=== PATIENT | male | born 1995 | race Caucasian/White ===

== ENCOUNTER 2024-07-16 13:57 | Emergency (ER) | payer OTHER ==
[~2024-07-16] VITALS: Ht 182.9 cm; Wt 70.3 kg
[2024-07-16 14:26] VITALS: TEMP 98
[2024-07-16] MEDS ORDERED: KETOROLAC TROMETHAMINE INJ 30 MG/ML VIAL ONE (15:04)
[2024-07-16] MEDS ORDERED: HYDROCODONE/APAP 5/325MG TABLET ONE (15:04)
[2024-07-16] MEDS ORDERED: oxyCODONE/APAP (5/325 MG) 1 UDTAB TABLET ONE ×2 (15:06→16:45)
[2024-07-16] MEDS: oxyCODONE/APAP (5/325 MG) 1 UDTAB TABLET PO ONE ×2 (15:10→16:47)
[2024-07-16] MEDS: KETOROLAC TROMETHAMINE INJ 30 MG/ML VIAL IM ONE (15:10)
[2024-07-16] MEDS ORDERED: IBUP-1490 PO (17:20)
[2024-07-16] MEDS ORDERED: OXYC-128 PO (17:20)
[2024-07-16 17:28] VITALS: BP 125/79; O2SAT 100
== END 2024-07-16 17:29 | disposition home or self-care (01) ==
LOC: ER 13:57
DX: M25.511 Pain in right shoulder (principal); M25.521 Pain in right elbow; M25.551 Pain in right hip; M25.561 Pain in right knee; M25.571 Pain in right ankle and joints of right foot; M79.605 Pain in left leg; M79.641 Pain in right hand; M79.671 Pain in right foot; Z60.2 Problems related to living alone; V18.0XXA Pedal cycle driver injured in noncollision transport accident in nontraffic accident, initial encounter; Y93.89 Activity, other specified; Y92.488 Other paved roadways as the place of occurrence of the external cause; Y99.8 Other external cause status
CPT/HCPCS: 99285; 74176; 96372; 73610; 73080; 73630; 73130; 73564 ×2; 73030; 73590; 73110; J1885